=== PATIENT | male | born 1970 | race Asian ===

== ENCOUNTER 2016-12-02 19:50 | Emergency (ER) | payer OTHER ==
[~2016-12-02] VITALS: Ht 172.7 cm; Wt 86.6 kg
[2016-12-02] MEDS ORDERED: Cyclobenzaprine 10mg Tab ORAL ONE (20:15)
[2016-12-02] MEDS ORDERED: CYCLOBENZAPRINE10 MG ORAL (21:01)
[2016-12-02] MEDS ORDERED: IBUPROFEN600 MG ORAL (21:01)
[2016-12-02 21:21] VITALS: BP 148/81
[2016-12-02 21:26] VITALS: BP 141/81
--- NOTE | 2016-12-02 21:46 | Emergency Room Report ---
History of Present Illness General Chief Complaint: Multiple Trauma/Fall Source: Patient (MACIEL DESOUZA) Present Illness HPI The patient is a 46 all male presenting with right knee and left lower back pain after slipping and falling at work today. The patient states that there was a wet floor, he slipped, and fell onto the right knee. The patient states that the pain is a 6/10 dull ache it does not radiate from the knee. Pain worse with movement such as walking. Patient denies prior injury to the knee. Patient denies numbness or tingling of the leg. The patient denies injury to the back but does admit to pain which started after falling. This pain is worse with twisting and is said to be a 5/10 dull ache. (MACIEL DESOUZA) Allergies: Coded Allergies: PROCHLORPERAZINE (Verified Allergy, Mild, 12/02/16) sniff neck Patient History Past Medical History: see triage record Pertinent Family History: none Reviewed Nursing Documentation: PMH: Agreed, PSxH: Agreed (MACIEL DESOUZA) Nursing Documentation-PMH Past Medical History: No Stated History (MACIEL DESOUZA) Review of Systems All Other Systems: negative except mentioned in HPI (MACIEL DESOUZA) Physical Exam Vital Signs Date Time Temp Pulse Resp B/P Pulse Ox O2 Delivery O2 Flow Rate FiO2 12/02/16 19:55 97.9 99 20 159/91 97 Room Air Sp02 EP Interpretation: reviewed, normal General Appearance: no apparent distress, alert, GCS 15, non-toxic Head: normocephalic, atraumatic Eyes: bilateral eye PERRL, bilateral eye normal inspection ENT: hearing grossly normal, normal pharynx, no angioedema, normal voice Musculoskeletal: normal inspection, gait/station normal, tender - There is tenderness to palpation over the anterior right knee and L lower paraspinous muscles Neurologic: alert, oriented x3, responsive, motor strength/tone normal, sensory intact, speech normal Psychiatric: judgement/insight normal, memory normal, mood/affect normal, no suicidal/homicidal ideation Skin: normal color, no rash, warm/dry, well hydrated (MACIEL DESOUZA) Procedures Splinting Splinting : Consent: Verbal Location: R knee Pre-Made Type: JENSEN wrap Post-Proc Neuro Vasc Exam: normal Patient Tolerated: Well Complications: None (MACIEL DESOUZA) Medical Decision Making PA Attestation Dr. Westbrook is my supervising physician. Patient management was discussed with my supervising physician (MACIEL DESOUZA) Diagnostic Impression: Primary Impression: Lumbar strain Additional Impression: Contusion of knee, right ER Course The patient is a 46 all male presenting with right knee and left lower back pain after slipping and falling at work today. Ddx considered include but not limited to sprain/strain, fracture, contusion, muscle spasm PE: NAD There is tenderness to palpation over the anterior right knee and L lower paraspinous muscles. Knee: Full AROM. No edema. No ecchymosis. Normal gait. No laxity. Back: No midline tenderness. No step-offs.Full active range of motion X-ray of the knee is unremarkable. The patient is given Motrin and Flexeril for pain with good relief. Jensen wrap placed over the right knee. The patient will followup with workers compensation and is given ER precautions (MACIEL DESOUZA) ER Course I agree with PA HPI and PE, as well as their assessment/plan. I also concur with PA review of imaging and rhythm strip without additional interpretation. (ROGER WESTBROOK M.D.) Other X-Ray Diagnostic Results Other X-Ray Diagnostic Results : X-Ray Ordered: R knee Date: Dec 02, 2016 Findings: no fractures, no dislocation, no soft tissue swelling Number of Views: 3 PA Scribe Text I am acting as scribe for my supervising physician. My supervising physician's interpretation of the R knee xrays are there are no fractures, dislocations or soft tissue swelling. (MACIEL DESOUZA) Last Vital Signs Date Time Temp Pulse Resp B/P Pulse Ox O2 Delivery O2 Flow Rate FiO2 12/02/16 21:26 81 16 141/81 99 Room Air 12/02/16 21:21 97.8 Status: improved (MACIEL DESOUZA.ASherita) Disposition: HOME, SELF-CARE Condition: Improved Scripts Cyclobenzaprine Hcl* (FLEXERIL*) 10 Mg Tablet 10 MG ORAL THREE TIMES A DAY, #15 TAB Prov: MACIEL DESOUZA 12/02/16 Ibuprofen* (MOTRIN*) 600 Mg Tablet 600 MG ORAL Q8H Y for For Pain, #30 TAB 0 Refills Prov: MACIEL DESOUZA 12/02/16 Referrals: NON PHYSICIAN (PCP) Patient Instructions: Knee Pain, Muscle Strain Additional Instructions: I discussed my findings with the patient. All questions and concerns have been answered. Treatment and medication compliance have been addressed. I advised the patient that they need to follow up with PMD in 3-5 days. Return to ED if pain remains or worsens, numbness or tingling occurs, new rash is noticed, fever is noticed, or if needed for any reason. Patient verbalized understanding of discharge instructions. MACIEL DESOUAZ Dec 02, 2016 21:46 ROGER WESTBROOK M.D. Dec 04, 2016 03:48
--- NOTE | 2016-12-03 09:58 | Diagnostic Imaging Report ---
Indication: Right knee pain Technique: XRAY KNEE THREE VIEWS RIGHT Comparison: None Findings: There is no acute fracture or dislocation. No joint effusion is seen. Bone mineralization is normal. Joint spaces are grossly preserved. Impression: No acute osseous abnormality.
== END 2016-12-02 21:29 | disposition home or self-care (01) ==
LOC: EMR 20:57
DX: S39.012A Strain of muscle, fascia and tendon of lower back, initial encounter (principal); S80.01XA Contusion of right knee, initial encounter; W01.0XXA Fall on same level from slipping, tripping and stumbling without subsequent striking against object, initial encounter; Y92.239 Unspecified place in hospital as the place of occurrence of the external cause; Y99.0 Civilian activity done for income or pay
CPT/HCPCS: 99284